=== PATIENT | female | born 1965 | race Caucasian/White ===

== ENCOUNTER → 2020-06-09 10:42 | Outpatient (BNVA) | payer MEDICARE, MEDICAID, SELFPAY | PROVIDERS: PCP Internal Medicine; Visit Provider Nurse Practitioner Family | DX: M53.3 Sacrococcygeal disorders, not elsewhere classified (principal) | CPT/HCPCS: 99202 ==

== ENCOUNTER → 2020-06-14 16:21 | Outpatient (BNVA) | payer MEDICARE, MEDICAID, SELFPAY | PROVIDERS: PCP Internal Medicine; Visit Provider Student in an Organized Health Care Education/Training Program | DX: M79.7 Fibromyalgia (principal); M53.3 Sacrococcygeal disorders, not elsewhere classified | CPT/HCPCS: 99212 ==

== ENCOUNTER 2020-08-15 08:00 | Outpatient (RCR) | payer MEDICARE, MEDICAID, SELFPAY ==
--- NOTE | 2020-06-30 17:09 | MHC.PT.EP ---
[facility] [place] [facility] [place] [facility] [place] [facility] [address] Yvonne Duncan [address] [phone] F: [phone] F: [phone] F: [phone] F: [phone] Physical Therapy Plan of Care Date of Evaluation: 06/30/20 Date of Surgery: Diagnosis: sacrococcygeal disorders, not elsewhere specified. Assessment: Pt is a 54 y/o female referred to PT for eval and treat of sacrococcygeal disorder who presents with signs and Sx consistent with lumbar dysfunction and Soraya extension classification resulting in decreased tolerance for sitting for duration, performing transfers, performing HH chores, and lifting objects of weight secondary to decreased posture, lumbar segmental hypomobility, radicular symptoms, decreased core and hip strength, and pain. Pt is deemed an appropriate candidate to receive skilled PT in order to address her physical limitations to improve her functional ability. Frequency and Duration: The patient will be seen 2 x / wk x 5 wks. Short Term Goals: In 1 week; initiate HEP with evidence of compliance. In 3 weeks: anterior hip radicular Sx abolished. Production Sampler Goals: In 5 weeks: I with HEP. In 5 week: improve core strength to > good. In 5 weeks: Pt will be able to perform seated tasks with managed Sx > 2 hours. In 5 weeks: Pt will no longer be painful of transfers. Treatment Plan: Modalities to reduce pain, spasms and effusion. Manual therapy to restore motion and function. Therapeutic exercise to improve strength and flexibility. Neuromuscular re-education for posture and balance. Therapeutic activities to return to functional activities of daily living. Electronically signed by: Sukhjinder Zamarripa PT. Please sign and return to therapist. Thank you for your referral.
--- NOTE | 2020-08-22 11:32 | MHC.PT.DC ---
[facility] [place] [facility] [place] [facility] [place] [facility] [address] Yvonne Duncan [address] [phone] F: [phone] F: [phone] F: [phone] F: [phone] Physical Therapy Discharge Report Diagnosis: sacrococcygeal disorders, not elsewhere specified. Date of Surgery: Date of Evaluation: 06/22/20 Date of Discharge: 08/22/20 Treatments to Date: 13 Cancellations to Date: 0 No Shows to Date: 0 Discharge Status: Improved Function Independent with HEP Electronically signed by: Sukhjinder Zamarripa PT. Please sign and return to therapist. Thank you for your referral.
== END 2021-08-01 13:30 | disposition home or self-care (01) ==
LOC: HO.PTCHIC 08:00
PROVIDERS: PCP Internal Medicine; Visit Provider Anesthesiology
DX: M53.3 Sacrococcygeal disorders, not elsewhere classified (principal)
CPT/HCPCS: 97110; 97140; 97162

== ENCOUNTER → 2020-09-08 08:00 | Outpatient (BNVA) | payer MEDICARE, MEDICAID, SELFPAY | PROVIDERS: PCP Internal Medicine; Visit Provider Nurse Practitioner Family | DX: M53.3 Sacrococcygeal disorders, not elsewhere classified (principal) | CPT/HCPCS: 99212 ==

== ENCOUNTER → 2020-10-13 14:09 | Outpatient (BNVA) | payer MEDICARE, MEDICAID, SELFPAY | PROVIDERS: PCP Internal Medicine; Visit Provider Physician Assistant | DX: E66.9 Obesity, unspecified (principal); Z68.39 Body mass index [BMI] 39.0-39.9, adult | CPT/HCPCS: 99212 ==

== ENCOUNTER → 2020-12-19 13:01 | Outpatient (BNVA) | payer MEDICARE, MEDICAID, SELFPAY | PROVIDERS: PCP Internal Medicine; Visit Provider Nurse Practitioner Family | DX: M79.7 Fibromyalgia (principal); M53.3 Sacrococcygeal disorders, not elsewhere classified; M79.671 Pain in right foot; M79.672 Pain in left foot | CPT/HCPCS: 99212 ==

== ENCOUNTER → 2020-12-20 10:57 | Outpatient (BNVA) | payer MEDICARE, MEDICAID, SELFPAY | PROVIDERS: PCP Internal Medicine; Visit Provider Nurse Practitioner Family | DX: M53.3 Sacrococcygeal disorders, not elsewhere classified (principal) | CPT/HCPCS: 99212 ==

== ENCOUNTER → 2021-04-11 13:04 | Outpatient (BNVA) | payer MEDICARE, MEDICAID, SELFPAY | PROVIDERS: PCP Internal Medicine; Visit Provider Nurse Practitioner Family | DX: M53.3 Sacrococcygeal disorders, not elsewhere classified (principal) | CPT/HCPCS: 99212 ==

== ENCOUNTER → 2021-08-02 11:16 | Outpatient (BNVA) | payer MEDICARE, MEDICAID, SELFPAY | PROVIDERS: PCP Internal Medicine; Visit Provider Nurse Practitioner Family | DX: M79.7 Fibromyalgia (principal); M53.3 Sacrococcygeal disorders, not elsewhere classified; M79.671 Pain in right foot; M79.672 Pain in left foot | CPT/HCPCS: 99212 ==

== ENCOUNTER → 2022-04-26 08:44 | Outpatient (BNVA) | payer MEDICARE, MEDICAID, SELFPAY | PROVIDERS: PCP Internal Medicine; Visit Provider Nurse Practitioner Family | DX: M79.7 Fibromyalgia (principal); M47.816 Spondylosis without myelopathy or radiculopathy, lumbar region; E66.9 Obesity, unspecified; E55.9 Vitamin D deficiency, unspecified; Z68.39 Body mass index [BMI] 39.0-39.9, adult | CPT/HCPCS: 99212 ==